=== PATIENT | male | born 1950 | race Caucasian/White ===

== ENCOUNTER → 2017-06-19 | Outpatient (REF) | payer MEDICARE ==
[2017-06-19 12:17] LABS: ALBUMIN 4.2 GM/DL (3.2-5.2); ALBUMIN/GLOBULIN RATIO 1.27 (1.00-1.93); ALKALINE PHOSPHATASE 70 U/L (45-117); ALT/SGPT 25 U/L (12-78); ANION GAP 10 MEQ/L (8-16); AST/SGOT 20 U/L (15-37); BILIRUBIN,TOTAL 0.7 MG/DL (0.2-1.0); BLOOD UREA NITROGEN 20 MG/DL (7-18); CALCIUM LEVEL 9.5 MG/DL (8.8-10.2); CARBON DIOXIDE LEVEL 29 MEQ/L (21-32); CHLORIDE LEVEL 102 MEQ/L (98-107); CHOLESTEROL LEVEL 202 MG/DL (<200); CREATININE FOR GFR 1.06 MG/DL (0.70-1.30); GLOMERULAR FILTRATION RATE > 60.0 (>49); GLUCOSE, FASTING 95 MG/DL (80-110); POTASSIUM SERUM 4.3 MEQ/L (3.5-5.1); SODIUM LEVEL 141 MEQ/L (136-145); TOTAL PROTEIN 7.5 GM/DL (6.4-8.2); TRIGLYCERIDES LEVEL 50 MG/DL (<150)
== END ==
LOC: M SFHCCLAY 07:24
PROVIDERS: ATTEND Family Medicine
DX: E78.2 Mixed hyperlipidemia (principal); N52.9 Male erectile dysfunction, unspecified; F32.9 Major depressive disorder, single episode, unspecified; Z12.5 Encounter for screening for malignant neoplasm of prostate
CPT/HCPCS: 80053; 80061; 84443; G0103

== ENCOUNTER → 2018-07-02 | Outpatient (REF) | payer MEDICARE ==
[2018-07-02 12:39] LABS: ALBUMIN 3.9 GM/DL (3.2-5.2); ALBUMIN/GLOBULIN RATIO 1.05 (1.00-1.93); ALKALINE PHOSPHATASE 71 U/L (45-117); ALT/SGPT 27 U/L (12-78); ANION GAP 9 MEQ/L (8-16); AST/SGOT 18 U/L (7-37); BILIRUBIN,TOTAL 0.6 MG/DL (0.2-1.0); BLOOD UREA NITROGEN 15 MG/DL (7-18); CALCIUM LEVEL 8.9 MG/DL (8.8-10.2); CARBON DIOXIDE LEVEL 28 MEQ/L (21-32); CHLORIDE LEVEL 104 MEQ/L (98-107); CHOLESTEROL LEVEL 182 MG/DL (<200); CREATININE FOR GFR 1.24 MG/DL (0.70-1.30); GLOMERULAR FILTRATION RATE > 60.0 (>49); GLUCOSE, FASTING 88 MG/DL (70-100); HDL CHOLESTEROL 52 MG/DL (>40); LDL CHOLESTEROL 114 MG/DL (<100); NON-HDL-C 130 MG/DL; POTASSIUM SERUM 4.4 MEQ/L (3.5-5.1); PSA SCREENING 0.75 NG/ML (< 4.0); SODIUM LEVEL 141 MEQ/L (136-145); TOTAL PROTEIN 7.6 GM/DL (6.4-8.2); TRIGLYCERIDES LEVEL 80 MG/DL (<150)
== END ==
LOC: M SFHCCLAY 08:04
DX: E78.2 Mixed hyperlipidemia (principal); Z12.5 Encounter for screening for malignant neoplasm of prostate
CPT/HCPCS: 80053

== ENCOUNTER → 2019-01-26 | Outpatient (CLI) | payer MEDICARE ==
[~2019-01-26] MED LIST: MAGO400T2 PO; OMEP40CA2 PO
[2019-01-26 09:13] LABS: HEMATOCRIT 45.2 % (42.0-52.0); HEMOGLOBIN 14.8 g/dl (13.5-17.5); MEAN CORPUSCULAR HEMOGLOBIN 30.1 pg (27.0-33.0); MEAN CORPUSCULAR HGB CONC 32.7 g/dl (32.0-36.5); MEAN CORPUSCULAR VOLUME 91.9 fl (80.0-96.0); PLATELET COUNT, AUTOMATED 209 10^3/uL (150-450); RED BLOOD COUNT 4.92 10^6/uL (4.30-6.10)
[2019-01-26 09:24] LABS: INR 0.96; PROTHROMBIN TIME 12.9 SECONDS (12.1-14.4)
[2019-01-26 09:34] LABS: ALT/SGPT 44 U/L (12-78); BILIRUBIN,TOTAL 0.5 MG/DL (0.2-1.0); BLOOD UREA NITROGEN 16 MG/DL (7-18); CALCIUM LEVEL 9.2 MG/DL (8.8-10.2); CARBON DIOXIDE LEVEL 30 MEQ/L (21-32); CHLORIDE LEVEL 105 MEQ/L (98-107); CREATININE FOR GFR 1.22 MG/DL (0.70-1.30); GLOMERULAR FILTRATION RATE > 60.0 (>49); GLUCOSE, FASTING 99 MG/DL (70-100); POTASSIUM SERUM 4.6 MEQ/L (3.5-5.1); SODIUM LEVEL 139 MEQ/L (136-145); TOTAL PROTEIN 7.4 GM/DL (6.4-8.2)
--- NOTE | 2019-01-26 09:55 | REP ---
Chest two views HISTORY: Preop Comparison: None The lungs are clear. The heart is normal in size. The pulmonary vasculature is normal in appearance. The bony structure is intact. IMPRESSION: No acute disease. Electronically Signed by Ben Berry MD 01/26/2019 09:47 A
[2019-01-26 09:58] LABS: ERYTHROCYTE SEDIMENTATION RATE 6 mm/hr (0-20)
--- NOTE | 2019-01-26 22:36 | ECGEPIP ---
Stationary ECG Study [facility] Test Date: 2019-01-26 Pat Name: DONA CID Department: Room: - Gender: M Waste Management Recycling Technician: MARIA VICTORIA : 1950 Requested By: Rudy Oleary Order Number: [id number] Reading MD: Silas Jerry Measurements Intervals [place] Rate: 70 P: 46 NH: 158 QRS: 47 QRSD: 90 T: 28 QT: 362 QTc: 392 Interpretive Statements SINUS RHYTHM, Early repolarization. No significant change compared with 09/17/2013. Electronically Signed On 01-26-2019 22:36:18 EDT by Silas Jerry
== END ==
LOC: M LAB 08:29
PROVIDERS: ATTEND Orthopaedic Surgery
DX: Z01.810 Encounter for preprocedural cardiovascular examination (principal); M17.11 Unilateral primary osteoarthritis, right knee

== ENCOUNTER → 2019-02-02 | Outpatient (REF) | payer MEDICARE ==
[2019-02-02 17:17] LABS: BASO % 0.9 % (0.0-1.0); EOS # 0.1 10^3/uL (0.0-0.50); EOS % 1.3 % (0.0-3.0); HEMATOCRIT 44.1 % (42.0-52.0); HEMOGLOBIN 14.2 g/dl (13.5-17.5); LYMPH # 1.1 10^3/uL (1.5-4.5); LYMPH % 23.5 % (24.0-44.0); MEAN CORPUSCULAR HEMOGLOBIN 29.5 pg (27.0-33.0); MEAN CORPUSCULAR HGB CONC 32.2 g/dl (32.0-36.5); MEAN CORPUSCULAR VOLUME 91.7 fl (80.0-96.0); MONO # 0.4 10^3/uL (0.0-0.8); MONO % 9.2 % (0.0-5.0); NEUTROPHILS # 2.9 10^3/uL (1.8-7.7); NEUTROPHILS % 64.9 % (36.0-66.0); PLATELET COUNT, AUTOMATED 213 10^3/uL (150-450); RED BLOOD COUNT 4.81 10^6/uL (4.30-6.10); WHITE BLOOD COUNT 4.5 10^3/uL (4.0-10.0)
== END ==
LOC: M SFHCCLAY 13:50
PROVIDERS: ATTEND Family Medicine
DX: Z01.818 Encounter for other preprocedural examination (principal); M17.11 Unilateral primary osteoarthritis, right knee; D72.819 Decreased white blood cell count, unspecified

== ENCOUNTER 2019-02-09 06:39 | Inpatient (IN) | payer MEDICARE ==
--- NOTE | 2019-02-05 11:46 | HPE ---
DATE OF ADMISSION: 02/09/2019 ATTENDING PHYSICIAN: Dr. Rudy Oleary HISTORY OF PRESENT ILLNESS: This is a pleasant male with continuing symptomatic right knee osteoarthritis. He has consented for right total knee arthroplasty per Dr. Rudy Oleary. Medical optimization appointment with Dr. Tenorio on -02/02/2019, which we are still awaiting documented clearance. The patient reports he was cleared by Dr. Tenorio. X-rays are consistent with advanced osteoarthritis. ALLERGIES: None known to medications. CURRENT MEDICATIONS List includes: - omeprazole 40 mg - Mag-Ox 400 (2431.3 mg) Medical problem list includes right knee osteoarthritis. Omeprazole for gastroesophageal reflux disease (GERD). SOCIAL HISTORY: He is a former smoker. Occasionally consumes alcohol. PAST SURGICAL HISTORY: Hernia repair. FAMILY HISTORY: Positive for diabetes, arthritis on his mother's side. Father's history is noncontributory. REVIEW OF SYSTEMS Denies chest pain, shortness of breath, dyspnea on exertion, fever, chills, malaise, upper respiratory or urinary tract symptoms. LABORATORY FINDINGS Acquired 01/26/2019, anion gap 4, white count 3.0. Chest x-ray, service date 01/26/2019, by [facility] showed no acute disease, as read by Dr. Berry. Electrocardiogram (EKG) as read by Dr. Jerry, sinus rhythm, early repolarization, [facility]. Still awaiting clearance documentation. PHYSICAL EXAMINATION: Blood pressure 125/68, pulse 74, temperature 98.7, height 71, weight 200, BMI 27.9, respirations 17. He is a pleasant, well-developed, well-nourished, male in no acute distress. Alert and oriented times three. Mood and affect are appropriate. Normocephalic. Chest rises symmetrically. Regular rate and rhythm. Lungs are clear to auscultation. Neck is supple. Negative jugular venous distention (JVD) or bruits. Bowel sounds times four, soft, nontender. Lower extremities are benign, noninfectious looking. Skin is intact. Right knee positive medial joint line tenderness with crepitance about the patella through flexion and extension. Negative popliteal fossa mass or pain. Knee range of motion 0 past 100. IMPRESSION: 1. Right knee symptomatic tricompartmental osteoarthritis. 2. The patient consented for right total knee arthroplasty per Dr. Rudy Oleary. 3. Medical optimization performed by Dr. Tenorio on 02/02/2019, which we are awaiting clearance documentation. 4. On-call to OR, 2 grams IV Kefzol in OR. 5. Sequential compression device (SCD) and TEDs in OR. MTDD
[~2019-02-09] VITALS: Ht 182.9 cm; Wt 90.7 kg
[2019-02-09] VITALS (7 sets, daily range): BP systolic 116–129; BP diastolic 76–81
[2019-02-09] MEDS ORDERED: LR 1,000 ML IV SCH ×3 (06:45→10:45)
[2019-02-09] MEDS ORDERED: IBUP200T45 PO (07:37)
[2019-02-09] MEDS ORDERED: MIDAZOLAM INJ 2 MG/2 ML VIAL (J2250) As Ordered ONE ×2 (07:43→07:49)
[2019-02-09] MEDS ORDERED: PROPOFOL 200 MG/20 ML VIAL As Ordered ONE ×2 (07:43→09:43)
[2019-02-09] MEDS ORDERED: fentaNYL 100 MCG/2 ML INJECTION (J3010) As Ordered ONE ×2 (07:49→10:28)
[2019-02-09] MEDS ORDERED: BUPIVACAINE/DEXTROSE 0.75% 2 ML AMP As Ordered ONE (07:49)
[2019-02-09] MEDS ORDERED: TRANEXAMIC ACID 100 MG/ML 10ML VIAL As Ordered ONE ×2 (08:06→08:47)
[2019-02-09] MEDS ORDERED: EPINEPHrine INJ 1 MG/ML 1ML AMP As Ordered ONE (08:07)
[2019-02-09] MEDS ORDERED: BUPIVACAINE LIPOSOME/PF 1.3% 20ML VIAL (13.3MG/ML)(EXPAREL)(C9290 PER1MG) As Ordered ONE (08:07)
[2019-02-09] MEDS ORDERED: ceFAZolin 1GM INJ (J0690 PER 500MG) As Ordered ONE (08:07)
[2019-02-09] MEDS: fentaNYL 100 MCG/2 ML INJECTION (J3010) IV PRN ×6 (08:11→10:45)
[2019-02-09] MEDS: MIDAZOLAM INJ 2 MG/2 ML VIAL (J2250) IV PRN ×2 (08:11→08:13)
--- NOTE | 2019-02-09 08:52 | IPN ---
DATE: 02/09/2019 Patient seen and examined. He wished to go ahead with a right knee arthroplasty. He understands the nature and the risks associated with this, which include bleeding, infection, damage to nerves, vessels, persistent pain, wear loosening, blood clots, medical problems, , among others. He wishes to proceed.
[2019-02-09] MEDS ORDERED: PHENYLephrine HCL 500 MCG/5 ML (100MCG/ML) SYRINGE (J2370) As Ordered ONE (09:26)
[2019-02-09] MEDS ORDERED: PERCOCET 5MG/325MG TAB As Ordered ONE (10:28)
[2019-02-09] MEDS: PERCOCET 5MG/325MG TAB PO PRN ×4 (10:30→21:27)
[2019-02-09] MEDS ORDERED: ONDANSETRON 4MG/2ML VIAL (J2405) IV PRN ×2 (10:30→13:15)
[2019-02-09] MEDS ORDERED: FLEET ENEMA PR PRN (10:45)
[2019-02-09] MEDS ORDERED: ACETAMINOPHEN TAB 650MG DOSE (2X325MG) PO PRN (10:45)
[2019-02-09] MEDS ORDERED: MORPHINE 4 MG/ML 1ML VIAL/SYRINGE (J2270) IV PRN ×2 (10:45)
[2019-02-09] MEDS: MORPHINE 10 MG/ML 1ML VIAL (J2270) IV PRN ×5 (11:00→11:25)
[2019-02-09] MEDS ORDERED: dexameTHASONE 10 MG/1 ML VIAL PRES.FREE (J1100) ONE (14:00)
[2019-02-09] MEDS ORDERED: ROPIvacaine 0.5% 30 ML INJECTION (J2795 PER 1MG) ONE (14:00)
[2019-02-09] MEDS ORDERED: LIDOCAINE 1% MDV 20ML VIAL ONE (14:00)
--- NOTE | 2019-02-09 14:30 | REP ---
RIGHT KNEE, TWO VIEWS: HISTORY: Postoperative. The patient is status post right total knee replacement. There is no acute fracture or dislocation. Subcutaneous air and surgical josie are present in the overlying soft tissue. IMPRESSION: The patient is status post right total knee replacement. There is anatomic alignment. Electronically Signed by Ben Berry MD 02/09/2019 02:37 P
[2019-02-10 06:00] VITALS: BP 112/66
[2019-02-10 07:06] LABS: HEMATOCRIT 34.8 % (42.0-52.0); HEMOGLOBIN 11.7 g/dl (13.5-17.5); MEAN CORPUSCULAR HEMOGLOBIN 30.9 pg (27.0-33.0); MEAN CORPUSCULAR HGB CONC 33.6 g/dl (32.0-36.5); MEAN CORPUSCULAR VOLUME 91.8 fl (80.0-96.0); PLATELET COUNT, AUTOMATED 200 10^3/uL (150-450); RED BLOOD COUNT 3.79 10^6/uL (4.30-6.10); WHITE BLOOD COUNT 7.5 10^3/uL (4.0-10.0)
[2019-02-10] MEDS: PERCOCET 5MG/325MG TAB PO PRN (08:01)
[2019-02-10] MEDS ORDERED: PERC5TAB12 PO (08:37)
[2019-02-10] MEDS ORDERED: XARE10TA PO (08:37)
[2019-02-10] MEDS ORDERED: MOM 30ML SUSPENSION UDC PO SCH (09:00)
[2019-02-10] MEDS ORDERED: MIRALAX *UNIT DOSE* 17GM PACKET PO SCH (09:00)
[2019-02-10] MEDS ORDERED: SENOKOT S TAB PO SCH (09:00)
--- NOTE | 2019-02-10 14:28 | RO ---
DATE OF PROCEDURE: 02/09/2019 PREOPERATIVE DIAGNOSIS: Right knee osteoarthritis. POSTOPERATIVE DIAGNOSIS: Right knee osteoarthritis. PROCEDURE: Right total knee arthroplasty using an Attune size 7 femur, 8 tibial tray, size 8 polyethylene and a 35 patellar button cruciate-retaining. SURGEON: Dr. Rudy Oleary AIR TABLE OPERATOR: Gordon Mathew ANESTHESIA: Spinal. ESTIMATED BLOOD LOSS: Less than 50. COMPLICATIONS: None. DESCRIPTION OF PROCEDURE: The patient was taken to the operating room and placed in supine position after spinal anesthesia was induced. The right lower extremity was prepped and draped in the usual sterile fashion. A time out was performed. Anterior incision was made over the anterior aspect of the knee and a medial parapatellar arthrotomy was performed. Everted the patella, flexed the knee up and used the canal initiating reamer on the femoral side, followed by the intramedullary guide set at 9 mm and 5 degrees of valgus. This was pinned in placed. The distal femoral cut was made, protecting soft tissues. I then sized the femur to be a 7 and the drill holes were made in the end of the femur with the external rotation dialed in. The cutting block was placed and remaining four cuts were made. The posterior retractor was placed protecting the posterior cruciate ligament (PCL) and the tibial alignment guide was placed and pinned in place with 4 mm off the low side, which is the medial side. The proximal tibia cut was made after checking with the external alignment guide and overall I was very pleased with the cuts. At this point, soft tissue and osteophytes were removed from either side of the knee and the spacer block was then tested and a size 8 seemed to be appropriate in flexion/extension. We then prepared the tibia. The tibial tray was measured to be an 8. We drilled, broached and placed the trial components. I had also done the cut on the end of the femur for the trochlea with the guide. The trial components were inserted. They fit very nicely. He had excellent stability and range of motion. I made sure there were no remaining osteophytes. I sized the patella to be a 35 after removing about 7 mm of bone, drilled it and put the patella through a range of motion. It tracked very nicely. I also drilled the end of the femur. The trial components were removed. I irrigated copiously and placed some Exparel in the deep tissues. The surfaces were dried. I cemented in the tibial tray, impacted it in place. The polyethylene was placed and the femur was cemented in the usual fashion, removing excess bone cement. I brought the knee out in extension, cemented on the patella, held it in place and removed excess bone cement. We irrigated again copiously. We placed the TXA. We placed the remaining Exparel. Then, once the cement had hardened, removed the patellar clamp. I closed the deep layer with #1 Vicryl suture in interrupted fashion followed by running Stratafix suture for a watertight closure after final deep irrigation was performed. I irrigated again and closed the subcutaneous with #2-0 Vicryl, deflated the tourniquet and closed the skin with josie. Sterile dressing was applied. He was taken to recovery room in stable condition. There were no known complications. The plan will be routine postop. The cardiovascular physician assistant was instrumental in holding retractors, assisting in making one of the bone cuts, assisting in wound closure, and mixing the cement.
[2019-02-10] MEDS ORDERED: RIVAROXABAN 10 MG TAB (XARELTO) PO SCH (18:00)
== END 2019-02-10 14:05 | disposition home or self-care (01) | DRG 470 ==
LOC: M OR 06:39 → M MS5PR 12:00
PROVIDERS: ADMIT Orthopaedic Surgery; ATTEND Orthopaedic Surgery
PROC: 0SRC0J9 Replacement of Right Knee Joint with Synthetic Substitute, Cemented, Open Approach (ICD-10-PCS; principal; 2019-02-09 08:30)
DX: M17.11 Unilateral primary osteoarthritis, right knee (principal); K21.9 Gastro-esophageal reflux disease without esophagitis; Z79.899 Other long term (current) drug therapy; Z87.891 Personal history of nicotine dependence

== ENCOUNTER 2019-03-12 10:24 | Outpatient (RCR) | payer MEDICARE ==
[~2019-03-12 10:24] MED LIST changes: +IBUP200T45 PO; +PERC5TAB12 PO; +XARE10TA PO
== END 2019-03-13 ==
LOC: M PT 10:24
PROVIDERS: ATTEND Orthopaedic Surgery
DX: Z47.1 Aftercare following joint replacement surgery (principal); Z96.651 Presence of right artificial knee joint

== ENCOUNTER 2019-04-09 10:20 | Outpatient (RCR) | payer MEDICARE | END 2019-04-12 | LOC: M PT 10:20 | PROVIDERS: ATTEND Orthopaedic Surgery | DX: Z96.651 Presence of right artificial knee joint (principal); Z47.1 Aftercare following joint replacement surgery ==

== ENCOUNTER 2019-04-21 09:07 | Outpatient (RCR) | payer MEDICARE | END 2019-05-13 | LOC: M PT 09:07 | PROVIDERS: ATTEND Orthopaedic Surgery | DX: Z47.1 Aftercare following joint replacement surgery (principal); Z96.651 Presence of right artificial knee joint ==

== ENCOUNTER → 2019-06-26 | Outpatient (REF) | payer MEDICARE ==
[~2019-06-26] MED LIST changes: -OMEP40CA2 PO; +OMEP40CA97 PO
[2019-06-26 11:37] LABS: BASO % 0.8 % (0.0-1.0); EOS # 0.1 10^3/uL (0.0-0.5); EOS % 1.9 % (0.0-3.0); HEMATOCRIT 42.7 % (42.0-52.0); HEMOGLOBIN 13.3 g/dl (13.5-17.5); LYMPH # 1.1 10^3/uL (1.5-5.0); LYMPH % 29.5 % (24.0-44.0); MEAN CORPUSCULAR HEMOGLOBIN 26.6 pg (27.0-33.0); MEAN CORPUSCULAR HGB CONC 31.1 g/dl (32.0-36.5); MEAN CORPUSCULAR VOLUME 85.4 fl (80.0-96.0); MONO # 0.4 10^3/uL (0.0-0.8); MONO % 10.9 % (0.0-5.0); NEUTROPHILS # 2.1 10^3/uL (1.5-8.5); NEUTROPHILS % 56.6 % (36.0-66.0); PLATELET COUNT, AUTOMATED 234 10^3/uL (150-450); WHITE BLOOD COUNT 3.8 10^3/uL (4.0-10.0)
[2019-06-26 11:56] LABS: ALBUMIN 4.1 GM/DL (3.2-5.2); ALT/SGPT 38 U/L (12-78); BILIRUBIN,TOTAL 0.6 MG/DL (0.2-1.0); BLOOD UREA NITROGEN 15 MG/DL (7-18); CALCIUM LEVEL 9.6 MG/DL (8.8-10.2); CARBON DIOXIDE LEVEL 27 MEQ/L (21-32); CHLORIDE LEVEL 105 MEQ/L (98-107); CHOLESTEROL LEVEL 197 MG/DL (<200); CHOLESTEROL RISK RATIO 3.862 (<5); CREATININE FOR GFR 1.26 MG/DL (0.70-1.30); GLOMERULAR FILTRATION RATE > 60.0 (>49); GLUCOSE, FASTING 100 MG/DL (70-100); HDL CHOLESTEROL 51 MG/DL (>40); LDL CHOLESTEROL 131 MG/DL (<100); NON-HDL-C 146 MG/DL; POTASSIUM SERUM 4.5 MEQ/L (3.5-5.1); SODIUM LEVEL 139 MEQ/L (136-145); TOTAL PROTEIN 7.5 GM/DL (6.4-8.2); TRIGLYCERIDES LEVEL 73 MG/DL (<150)
== END ==
LOC: M SFHCCLAY 07:53
PROVIDERS: ATTEND Family Medicine
DX: D72.819 Decreased white blood cell count, unspecified (principal); E78.2 Mixed hyperlipidemia; Z12.5 Encounter for screening for malignant neoplasm of prostate
CPT/HCPCS: 80053; 80061; 85025; G0103

== ENCOUNTER → 2020-12-01 | Outpatient (CLI) | payer SELFPAY | LOC: M LABSMTC 13:08 | PROVIDERS: ATTEND Pediatrics | DX: Z20.822 Contact with and (suspected) exposure to COVID-19 (principal) ==

== ENCOUNTER → 2020-12-16 | Outpatient (REF) | payer MEDICARE | LOC: M LAB REF 12:23 | PROVIDERS: ATTEND Physician Assistant Medical | DX: Z02.1 Encounter for pre-employment examination (principal) ==

== ENCOUNTER → 2021-07-18 | Outpatient (CLI) | payer MEDICARE ==
[~2021-07-18] MED LIST changes: +OMEP40CA4 PO; -OMEP40CA97 PO
--- NOTE | 2021-07-19 10:03 | REP ---
INDICATION: PAIN IN RT SHOULDER. COMPARISON: None. TECHNIQUE: Coronal oblique T1 and fat suppressed T2. Sagittal oblique fat suppressed T2. Axial [id number] and T2 FLASH. FINDINGS: There is moderate hypertrophic degenerative change seen involving the acromioclavicular joint. The acromion process has a slight type 3 appearance. There is significant T2 hyper signal seen in the supraspinatus tendon with tendinous retraction and significant supraspinatus muscle atrophy. There is fluid in the subacromial space. There is patchy T2 hyper signal seen in the subscapularis and infraspinatus tendons. The biceps tendon resides within the bicipital groove. There is a significant amount of fluid seen surrounding the biceps tendon just distal to the bicipital groove. There is linear hyper signal in the anterior labrum with similar imaging characteristics in the posterior labrum and truncation of the inferior labrum. There is glenoid chondral thinning and irregularity. There is slight humeral head marginal osteophytosis. There is no significant glenohumeral joint effusion. IMPRESSION: 1. The supraspinatus tendon is torn. 2. There is subscapularis and infraspinatus tendinitis/tendinosis. 3. There is labral pathology consistent with degeneration and labral tear is as described above. These could be further evaluated with shoulder MRI arthrography if clinically relevant. 4. Fluid collections as described above. 5. Biceps tendinitis should be clinically evaluated for. 6. Other findings as described above. <Electronically signed by Joshua Rowland > 07/19/21 1000
== END ==
LOC: M RAD 18:08
PROVIDERS: ATTEND Physician Assistant
DX: R93.7 Abnormal findings on diagnostic imaging of other parts of musculoskeletal system (principal); M25.511 Pain in right shoulder

== ENCOUNTER → 2023-05-20 | Outpatient (CLI) | payer MEDICARE ==
[~2023-05-20] MED LIST changes: -IBUP200T45 PO; +IBUP200T46 PO
[2023-05-20 14:50] LABS: HEMATOCRIT 43.7 % (42.0-52.0); HEMOGLOBIN 13.9 g/dl (13.5-17.5); MEAN CORPUSCULAR HEMOGLOBIN 29.4 pg (27.0-33.0); MEAN CORPUSCULAR HGB CONC 31.8 g/dl (32.0-36.5); MEAN CORPUSCULAR VOLUME 92.4 fl (80.0-96.0); PLATELET COUNT, AUTOMATED 203 10^3/uL (150-450); RED BLOOD COUNT 4.73 10^6/uL (4.30-6.10)
[2023-05-20 15:01] LABS: INR 0.92; PROTHROMBIN TIME 12.6 SECONDS (12.5-14.5)
[2023-05-20 15:18] LABS: ALBUMIN 3.8 G/DL (3.2-5.2); ALKALINE PHOSPHATASE 66 U/L (46-116); ALT/SGPT 43 U/L (7.0-40); AST/SGOT 24 U/L (<34); BILIRUBIN,TOTAL 0.5 MG/DL (0.3-1.2); BLOOD UREA NITROGEN 13 MG/DL (9-23); CALCIUM LEVEL 9.5 MG/DL (8.3-10.6); CARBON DIOXIDE LEVEL 29 MMOL/L (20-31); CHLORIDE LEVEL 105 MMOL/L (98-107); CREATININE FOR GFR 1.22 MG/DL (0.70-1.30); GLOMERULAR FILTRATION RATE > 60.0 (>42); GLUCOSE, FASTING 82 MG/DL (74-106); SODIUM LEVEL 141 MMOL/L (136-145)
[2023-05-20 15:23] LABS: ERYTHROCYTE SEDIMENTATION RATE 16 mm/hr (0-20)
== END ==
LOC: M RAD 13:58
PROVIDERS: ATTEND Orthopaedic Surgery
DX: Z01.818 Encounter for other preprocedural examination (principal); M17.12 Unilateral primary osteoarthritis, left knee; Z79.01 Long term (current) use of anticoagulants

== ENCOUNTER 2023-08-14 10:02 | Day surgery (SDC) | payer MEDICARE ==
[~2023-08-14] VITALS: Ht 182.9 cm; Wt 82.3 kg
[~2023-08-14 10:02] MED LIST changes: +FLUT50SP17; +NS 1,000 ML IV ONE
[2023-08-14] MEDS ORDERED: fentaNYL 100 MCG/2 ML INJECTION As Ordered ONE (11:42)
[2023-08-14] MEDS ORDERED: propofoL 200 MG/20 ML VIAL As Ordered ONE (11:42)
[2023-08-14 13:39] VITALS: BP 114/74; TEMP 97; O2SAT 95
== END 2023-08-14 13:41 | disposition home or self-care (01) ==
LOC: M OPP 10:02
PROVIDERS: ATTEND Internal Medicine Gastroenterology
DX: Z12.11 Encounter for screening for malignant neoplasm of colon (principal); Z12.12 Encounter for screening for malignant neoplasm of rectum; K64.0 First degree hemorrhoids; K57.30 Diverticulosis of large intestine without perforation or abscess without bleeding; K44.9 Diaphragmatic hernia without obstruction or gangrene; K21.9 Gastro-esophageal reflux disease without esophagitis; Z79.899 Other long term (current) drug therapy
CPT/HCPCS: 43239; 45378; 88305; J3010